=== PATIENT | female | born 1950 | race Caucasian/White ===

== ENCOUNTER 2016-07-07 19:27 | Emergency (ER) | payer SELFPAY ==
[~2016-07-07] VITALS: Ht 154.9 cm; Wt 100.8 kg
[2016-07-07 20:15] LABS: HEMATOCRIT 43.9 % (36.0-46.0); MCH 27.8 PG (29.0-34.0); MCHC 34.6 G/DL (30.0-36.0); MCV 80.3 FL (83-99); MEAN PLAT.VOLUME 10.6 uM^3 (9.5-12.4); PLATELET COUNT 173 K/uL (156-360); RBC DIS.WIDTH-CV 14.4 % (11.8-14.6); RBC DIS.WIDTH-SD 41.8 % (39-53); RED BLOOD COUNT 5.47 M/uL (3.80-5.20); WHITE BLOOD COUNT 8.1 K/uL (4.1-10.2)
[2016-07-07 20:23] LABS: CHLORIDE 105 mEq/L (99-109); POTASSIUM 4.1 mEq/L (3.7-5.4); SODIUM 142 mEq/L (136-147)
[2016-07-07 20:25] LABS: GLUCOSE 167 mg/dL (70-99)
[2016-07-07 20:26] LABS: ANION GAP 10 MEQ/L (2-14)
[2016-07-07 20:29] LABS: GFR ESTIMATE (CALCULATED) > 59 mL/min/
[2016-07-07 20:30] LABS: UREA NITROGEN (BUN) 22 mg/dL (9-23)
[2016-07-07 21:29] LABS: ADD MIUA? YES; BILIRUBIN NEGATIVE; BLOOD SMALL; COLOR YELLOW ((YELLOW)); GLUCOSE (STRIP) NEGATIVE; KETONES NEGATIVE; LEUKOCYTES TRACE; NITRITE POSITIVE; PROTEIN (STRIP) 100; SPECIFIC GRAVITY 1.019 (1.000-1.030); UROBILINOGEN 0.2 MG/DL (0.2-1.0)
[2016-07-07 21:30] LABS: SERUM ETHYL ALCOHOL < 10 mg/dL
[2016-07-07 21:49] LABS: AMPHETAMINE NEGATIVE (500 ng/mL); BARBITURATES NEGATIVE (200 ng/mL); BENZODIAZEPINES NEGATIVE (150 ng/mL); COCAINE NEGATIVE (150 ng/mL); INTERNAL CONTROLS VALID? YES; METHADONE NEGATIVE (200 ng/mL); METHAMPHETAMINE NEGATIVE (500 ng/mL); OPIATES (MORPHINE) NEGATIVE (100 ng/mL); OXYCODONE NEGATIVE (100 ng/mL); PHENCYCLIDINE NEGATIVE (25 ng/mL); PROPOXYPHENE NEGATIVE (300 ng/mL); THC CANNABINOIDS NEGATIVE (50 ng/mL); TRICYCLIC ANTIDEPRESSANTS NEGATIVE (300 ng/mL)
[2016-07-07 22:01] LABS: BACTERIA 3+ /HPF; EPITHELIAL CELLS RARE /HPF; MUCUS 1+ /LPF; RED BLOOD CELLS NONE SEEN /HPF (0-5); UNCLASSIFIED CASTS 0-5 /LPF; WHITE BLOOD CELLS NONE SEEN /HPF (0-5)
[2016-07-07] MEDS ORDERED: BACTRIM,SEPT1 TABLET PO (22:43)
[2016-07-07] MEDS ORDERED: CLONIDINE HCL0.1 MG PO (22:43)
[2016-07-07] MEDS ORDERED: XANAX0.5 MG PO (22:44)
[2016-07-07 23:42] VITALS: BP 171/99
== END 2016-07-07 23:43 | disposition home or self-care (01) ==
LOC: EME 19:27
PROVIDERS: Emergency Medicine
DX: F41.1 Generalized anxiety disorder (principal); N39.0 Urinary tract infection, site not specified; I10 Essential (primary) hypertension; T46.5X6A Underdosing of other antihypertensive drugs, initial encounter; Z91.14 Patient's other noncompliance with medication regimen
CPT/HCPCS: 80048; 81003; 85027; 90839; 99281; 99284; G0480